=== PATIENT | female | born 1940 | race Caucasian/White ===

== ENCOUNTER 2016-12-13 10:13 | Emergency (ER) | payer MEDICARE, BC ==
[~2016-12-13] VITALS: Ht 157.5 cm; Wt 79.9 kg
[~2016-12-13 10:13] MED LIST: AMLO2.5T78 PO; BISA5TAB6 PO; CALC0.2511 PO; CALC200T26 PO; CARV6.2579 PO; CHOL100062 PO; FER325 PO; HYDR-3498 PO; LACT20SO12 PO; LEVE-5 PO; LEVO88TA PO; LEVO88TA3 PO; LIDO700A31 TD; NOVO3I SC; NSTR15C TOP; PANT40TA4 PO; POLY17PO6 PO; SERT100T PO; TRAM50TA2 PO; TYL500 PO; [UNRECOGNIZED DRUG - CODE] PO
[2016-12-13 10:16] VITALS: Ht 157.5 cm; Wt 79.9 kg
[2016-12-13] MEDS ORDERED: FAMOTIDINE 20 MG INJ IV STA (10:50)
[2016-12-13] MEDS ORDERED: METOCLOPRAMIDE 10 MG INJ IV STA (10:50)
--- NOTE | 2016-12-13 11:06 | ERD ---
ER Documentation Chief Complaint Date/Time DATE: 12/13/16 TIME: 11:03 Chief Complaint AP TODAY , NO NAUSEA, NO CONSTIPATION HPI Patient is a 76-year-old female who presents with sudden onset, constant, moderate epigastric pain since this morning. She states that she feels like fluids get stuck in her esophagus when she swallows. She states that the pain radiates up to her bilateral posterior shoulders. She denies lower abdominal pain. She reports nausea. She denies vomiting. She denies fever. She denies dysuria. She denies shortness of breath. She denies chest pain. She has been having intermittent abdominal discomfort for the last 2 weeks. She has chronic dark stool due to iron supplementation, but denies any change. ROS All systems reviewed and are negative except as per history of present illness. Medications Home Meds Active Scripts Famotidine* (Pepcid*) 20 Mg Tablet, 20 MG PO DAILY for 30 Days, TAB Prov:EDILSON EDMONDSON MD 12/13/16 Tramadol HCl (Tramadol HCl) 50 Mg Tablet, 50 MG PO Q6H Y for Pain for 14 Days, TAB Prov:RICHARD SCHAFER NP 11/11/15 Pantoprazole* (Pantoprazole*) 40 Mg Tablet.dr, 40 MG PO DAILY for 30 Days Prov:RICHARD SCHAFER NP 11/11/15 Nystatin-Tramcinolone* (Mycolog*) 15 Grams Cr, 1 APPLIC TOP BID for 10 Days Prov:RICHARD SCHAFER NP 11/11/15 Lidocaine 5%* (Lidocaine 5%) 1 Patch Patch, 1 PATCH TD DAILY for 14 Days Prov:RICHARD SHCAFER NP 11/11/15 Levetiracetam* (Keppra*) 500 Mg Tablet, 500 MG PO BID for 30 Days, TAB Prov:RICHARD SCHAFER NP 11/11/15 Reported Medications Valsartan* (Diovan*) 160 Mg Tablet, 160 MG PO DAILY, TAB 12/13/16 Clopidogrel Bisulfate (Clopidogrel) 75 Mg Tablet, 75 MG PO DAILY, #30 TAB 12/13/16 Metformin Hcl* (Metformin Hcl*) 850 Mg Tablet, 850 MG PO WITH BREAKFAST DINNE, # 30 TAB 12/13/16 Sitagliptin* (Januvia*) 100 Mg Tablet, 100 MG PO DAILY, #30 TAB 12/13/16 Sertraline Hcl* (Zoloft*) 50 Mg Tablet, 50 MG PO DAILY, #30 TAB 12/13/16 Levothyroxine Sodium* (Levoxyl*) 75 Mcg Tablet, 75 MCG PO BEFORE BREAKFAST, #30 TAB 12/13/16 Ferrous Sulfate* (Ferrous Sulfate*) 325 Mg Tabec, 325 MG PO BID, TAB 10/31/15 Cholecalciferol* (Vitamin D3*) 1,000 Unit Tablet, 1000 UNIT PO DAILY, TAB 10/31/15 Carvedilol* (Carvedilol*) 6.25 Mg Tablet, 6.25 MG PO BID, #60 TAB 10/31/15 Discontinued Reported Medications Levothyroxine Sodium* (Levothyroxine Sodium*) 88 Mcg Tablet, 88 MCG PO BEFORE BREAKFAST, #30 TAB 10/31/15 Calcium Carbonate/Vitamin D3 (Calicum 500+D Tablet Chew) 1 Tab.chew Tab.chew, 1 TAB.CHEW PO, TAB.CHEW 10/31/15 Sertraline Hcl* (Zoloft*) 100 Mg Tablet, 100 MG PO DAILY, #30 TAB 10/31/15 Discontinued Scripts Polyethylene Glycol* (Miralax*) 17 Gm Powd.pack, 17 GM PO DAILY for 30 Days Prov:RICHARD SCHAFER NP 11/11/15 Levothyroxine Sodium* (Synthroid*) 88 Mcg Tablet, 88 MCG PO DAILY@06 for 30 Days , TAB Prov:RICHARD SCHAFER NP 11/11/15 Lactulose* (Cephulac*) 20 Gm/30 Ml Soln, 20 GM PO Q6H Y for CONSTIPATION for 30 Days Prov:RICHARD SCHAFER NP 11/11/15 Insulin Aspart* (Novolog Insulin Pen*) 100 Unit/Ml Soln, 0 UNIT SC WITH MEALS BEDTIME for 30 Days Prov:RICHARD SCHAFER NP 11/11/15 Hydrocodone Bit/Acetaminophen (Anexsia 5-325 Mg Tablet) 1 Tab Tablet, 1 TAB PO Q3H Y for pain for 10 Days, TAB Prov:RICHARD SCHAFER NP 11/11/15 Calcium Carbonate (CALCIUM CARBONATE) 200 Mg Tab.chew, 1000 MG PO PC MEALS for 30 Days, TAB.CHEW Prov:RICHARD SCHAFER NP 11/11/15 Calcitriol* (Calcitriol*) 0.25 Mcg Capsule, 0.5 MCG PO DAILY for 30 Days, CAP Prov:RICHARD SCHAFER [employer] 11/11/15 Bisacodyl* (Bisacodyl*) 5 Mg Tablet.dr, 10 MG PO DAILY Y for CONSTIPATION for 30 Days Prov:HANHRICHARD [employer] 11/11/15 Amlodipine Besylate* (Amlodipine Besylate*) 2.5 Mg Tablet, 2.5 MG PO BID for 30 Days, TAB Prov:HANHRICHARD [employer] 11/11/15 Acetaminophen* (Tylenol*) 500 Mg Tab, 500 MG PO Q6H Y for PAIN AND OR ELEVATED TEMP for 30 Days, TAB Prov:RICHARD SCHAFER [employer] 11/11/15 Allergies Allergies: Coded Allergies: No Known Allergy (Unverified , 12/13/16) PMhx/Soc Past medical history: Bladder cancer, diabetes, hypertension, hyperlipidemia, anemia Past surgical history: Cholecystectomy, hysterectomy, resection of bladder cancer Social history: Denies tobacco or alcohol. History of Surgery: No Anesthesia Reaction: No Hx Neurological Disorder: No Hx Respiratory Disorders: No Hx Cardiac Disorders: Yes (TIA) Hx Psychiatric Problems: No Hx Miscellaneous Medical Probl: Yes (HTN, seizure, depression, DM, hypothyroidism, Bladder cancer in 2016) Hx Alcohol Use: No Hx Substance Use: No Hx Tobacco Use: No Smoking Status: Never smoker FmHx Noncontributory Physical Exam Vitals Vital Signs Date Time Temp Pulse Resp B/P Pulse Ox O2 Delivery O2 Flow Rate FiO2 12/13/16 10:16 98.1 69 18 143/60 99 Physical Exam Const: Alert, appears mildly uncomfortable Head: Atraumatic Eyes: Normal Conjunctiva, no pallor, no icterus ENT: Normal External Ears, Nose and Mouth. Neck: Full range of motion..~ No meningismus. Resp: Clear to auscultation bilaterally, no wheezes, no rales Cardio: Regular rate and rhythm, no murmurs Abd: Soft, non distended. Tender in epigastrium only. No guarding, no rebound Skin: No petechiae or rashes Back: No midline or flank tenderness. Paraspinal muscle tenderness with spasm. Ext: No cyanosis, or edema. 2+ pulses in 4 extremities. Neur: Awake and alert, cranial nerves II through XII intact bilaterally, moves and feels 4 extremities appropriately Psych: Normal Mood and Affect Result Diagram: 12/13/16 1107 12/13/16 1107 Results 24 hrs Laboratory Tests Test 12/13/16 10:39 12/13/16 11:07 Urine Color YELLOW Urine Clarity CLEAR Urine pH 5.0 Urine Specific [place] 1.017 Urine Ketones NEGATIVEmg/dL Urine Nitrite NEGATIVEmg/dL Urine Bilirubin NEGATIVEmg/dL Urine Urobilinogen NEGATIVEmg/dL Urine Leukocyte Esterase NEGATIVELeu/ul Urine Microscopic RBC 1/HPF Urine Microscopic WBC 0/HPF Urine Bacteria FEW/HPF Urine Hemoglobin 2+mg/dL Urine Glucose NEGATIVEmg/dL Urine Total Protein NEGATIVEmg/dl White Blood Count 15.210^3/ul Red Blood Count 3.8910^6/ul Hemoglobin 10.6g/dl Hematocrit 33.9% Mean Corpuscular Volume 87.1fl Mean Corpuscular Hemoglobin 27.2pg Mean Corpuscular Hemoglobin Concent 31.3g/dl Red Cell Distribution Width 13.7% Platelet Count 25137^3/UL Mean Platelet Volume 11.1fl Neutrophils % 82.3% Lymphocytes % 11.0% Monocytes % 4.3% Eosinophils % 1.5% Basophils % 0.5% Nucleated Red Blood Cells % 0.0/100WBC Neutrophils # 12.510^3/ul Lymphocytes # 1.710^3/ul Monocytes # 0.710^3/ul Eosinophils # 0.210^3/ul Basophils # 0.110^3/ul Nucleated Red Blood Cells # 0.010^3/ul Prothrombin Time 12.3Sec Prothrombin Time Ratio 1.0 INR International Normalized Ratio 0.91 Sodium Level 139mmol/L Potassium Level 4.7mmol/L Chloride Level 103mmol/L Carbon Dioxide Level 23mmol/L Anion Gap 18 Blood Urea Nitrogen 24mg/dl Creatinine 1.12mg/dl Glucose Level 114mg/dl Calcium Level 10.7mg/dl Total Bilirubin 0.0mg/dl Direct Bilirubin 0.00mg/dl Indirect Bilirubin 0.0mg/dl Aspartate Amino Transf (AST/SGOT) 27IU/L Alanine Aminotransferase (ALT/SGPT) 31IU/L Alkaline Phosphatase 90IU/L Troponin I < 0.012ng/ml Total Protein 6.8g/dl Albumin 4.3g/dl Globulin 2.50g/dl Albumin/Globulin Ratio 1.72 Lipase 106U/L Current Medications Medications (Trade) Dose Ordered Sig/Amanda Route PRN Reason Start Time Stop Time Status Last Admin Dose Admin Metoclopramide HCl (Reglan) 10 mg ONCE STAT IV 12/13/16 10:50 12/13/16 10:51 DC 12/13/16 11:20 Famotidine (Pepcid Iv) 20 mg ONCE STAT IV 12/13/16 10:50 12/13/16 10:51 DC 12/13/16 11:21 Morphine Sulfate (morphine) 4 mg ONCE STAT IV 12/13/16 13:09 12/13/16 13:10 DC 12/13/16 13:18 IV Flush 10 ml 10 ml STK-MED ONCE .ROUTE 12/13/16 13:41 12/13/16 13:42 DC Sodium Chloride (NS) 100 ml @ ud STK-MED ONCE .ROUTE 12/13/16 13:41 12/13/16 13:42 DC Iodixanol (Visipaque Locm) 100 ml STK-MED ONCE .ROUTE 12/13/16 13:41 12/13/16 13:42 DC Procedures/MDM EKG read by me: Time 1108, rate 69 Rhythm: Normal sinus [place]: Normal Intervals: Normal ST-T waves: no ischemic changes Ectopy: No Q-waves: No Impression: No evidence of ischemia or arrhythmia MDM: Patient is a 76-year-old female who presents with epigastric abdominal pain for several hours. She has a nonischemic EKG, relatively benign abdominal exam, and has not had vomiting. She denies chest pain. Her laboratory evaluation reveals leukocytosis, but is otherwise unremarkable. She has no fever or other vital sign abnormality. On reassessment, the patient appears improved. She now reports having muscle spasm in her back, but states that her abdomen feels better. She continues to deny chest pain. The patient is status post cholecystectomy. There is no evidence of pancreatitis. I have low suspicion for coronary ischemia. The patient does have some muscle spasm and tenderness in the back, but I believe that this is not likely related to her abdominal pain. I do not believe that her presentation is concerning for aortic dissection. I do not believe it is concerning for mesenteric ischemia. I will discharge the patient home with a prescription for Pepcid, and have advised her on strict return precautions if she experiences worsening pain, vomiting, or fever. I have advised her to follow-up with her PMD tomorrow regardless. Departure Diagnosis: Primary Impression: Abdominal pain Abdominal location: epigastric Qualified Code: R10.13 - Epigastric pain Additional Impression: Muscle spasm Condition: Stable EDILSON EDMONDSON MD Dec 13, 2016 11:06
[2016-12-13 11:22] LABS: ADD SCAN DIFF NO
[2016-12-13 11:26] LABS: BASOPHIL # 0.1 10^3/ul (0.0-0.1); BASOPHILS % 0.5 % (0.0-2.0); EOSINOPHILS # 0.2 10^3/ul (0.0-0.5); EOSINOPHILS % 1.5 % (0.0-7.0); HEMATOCRIT 33.9 % (37.0-47.0); HEMOGLOBIN 10.6 g/dl (12.0-16.0); LYMPHOCYTES # 1.7 10^3/ul (0.8-2.9); MEAN CORPUSCULAR HEMOGLOBIN 27.2 pg (29.0-33.0); MEAN CORPUSCULAR HGB CONC 31.3 g/dl (32.0-37.0); MEAN CORPUSCULAR VOLUME 87.1 fl (82.0-101.0); MEAN PLATELET VOLUME 11.1 fl (7.4-10.4); MONOCYTE # 0.7 10^3/ul (0.3-0.9); MONOCYTES % 4.3 % (0.0-11.0); NEUTROPHIL # 12.5 10^3/ul (1.6-7.5); NEUTROPHILS % 82.3 % (39.0-77.0); PLATELET COUNT 233 10^3/UL (140-415); RED BLOOD COUNT 3.89 10^6/ul (4.20-5.40); RED CELL DISTRIBUTION WIDTH 13.7 % (11.5-14.5); WHITE BLOOD COUNT 15.2 10^3/ul (4.8-10.8)
--- NOTE | 2016-12-13 11:38 | RADRPT ---
PROCEDURE: XR Chest. CLINICAL INDICATION: Abdominal pain TECHNIQUE: An AP view of the chest was obtained. COMPARISON: Chest x-ray dated 11/07/2015 FINDINGS: There is prominence of the central pulmonary vascular markings. No focal airspace opacification or pneumothorax is seen. The cardiomediastinal silhouette is within normal limits for size. Calcifica tions are seen within the aortic arch. There are mitral annular calcifications. The osseous structur es demonstrate senescent changes. IMPRESSION: 1. Findings suggestive of pulmonary vascular congestion, improved when compared to the prior exami nation. 2. Aortic atherosclerosis. RPTAT: HH .Barbara Ann MD, MD Date Time Electronically viewed and signed by .Barbara Ann MD, on 12/13/2016 11:38 .G/
[2016-12-13 11:47] LABS: UR BACTERIA FEW /HPF (NONE SEEN); UR RBC 1 /HPF (0-5)
[2016-12-13 11:48] LABS: INR 0.91; PROTIME 12.3 Sec (12.2-14.2)
[2016-12-13 11:49] LABS: ADD UMIC YES; UR ASCORBIC ACID NEGATIVE (NEGATIVE); UR BILIRUBIN (Dip) NEGATIVE (NEGATIVE); UR BLOOD (Dip) 2+ mg/dL (NEGATIVE); UR CLARITY CLEAR (CLEAR); UR COLOR YELLOW (YELLOW); UR GLUCOSE (Dip) NEGATIVE (NEGATIVE); UR KETONES (Dip) NEGATIVE (NEGATIVE); UR LEUKOCYTE ESTERASE (Dip) NEGATIVE Leu/ul (NEGATIVE); UR NITRITE (Dip) NEGATIVE (NEGATIVE); UR SPECIFIC GRAVITY (Dip) 1.017 (1.003-1.030); UR TOTAL PROTEIN (Dip) NEGATIVE (NEGATIVE); UR UROBILINOGEN (Dip) NEGATIVE (NEGATIVE)
[2016-12-13 11:58] LABS: ALANINE AMINOTRANSFERASE 31 IU/L (13-69); ALBUMIN 4.3 g/dl (3.3-4.9); ALBUMIN/GLOBULIN RATIO 1.72; ALKALINE PHOSPHATASE 90 IU/L (42-121); ANION GAP 18 (8-16); ASPARTATE AMINO TRANSFERASE 27 IU/L (15-46); BLOOD UREA NITROGEN 24 mg/dl (7-20); CALCIUM 10.7 mg/dl (8.4-10.2); CARBON DIOXIDE 23 mmol/L (21-31); CHLORIDE 103 mmol/L (97-110); CREATININE 1.12 mg/dl (0.44-1.00); GLUCOSE 114 mg/dl (70-220); POTASSIUM 4.7 mmol/L (3.5-5.1); SODIUM 139 mmol/L (135-144); TOTAL PROTEIN 6.8 g/dl (6.1-8.1)
[2016-12-13 12:11] LABS: TROPONIN-I < 0.012 ng/ml (0.00-0.12)
[2016-12-13] MEDS ORDERED: LEVO75TA65 PO (12:43)
[2016-12-13] MEDS ORDERED: SERT50TA PO (12:44)
[2016-12-13] MEDS ORDERED: SITA100T8 PO (12:44)
[2016-12-13] MEDS ORDERED: METF850T PO (12:44)
[2016-12-13] MEDS ORDERED: CLOP75TA27 PO (12:45)
[2016-12-13] MEDS ORDERED: VALS160T20 PO (12:45)
[2016-12-13] MEDS ORDERED: morphine 4 MG/ML VIAL IV STA (13:09)
[2016-12-13] MEDS ORDERED: SOD CHLORIDE 0.9% 100 ML ONE (13:41)
[2016-12-13] MEDS ORDERED: IODIXANOL LOCM 100 ML BTL ONE (13:41)
--- NOTE | 2016-12-13 14:22 | RADRPT ---
PROCEDURE: CT Abdomen and Pelvis with contrast. CLINICAL INDICATION: Abdominal pain. History of bladder cancer. TECHNIQUE: CT scan of the abdomen and pelvis with contrast was performed on a multi-detector high- resolution CT scanner. The patient was scanned following the uncomplicated intravenous administrati on of 90 cc of Visipaque 320. Coronal and sagittal reformatted images were obtained from the axial source images. Images were reviewed on a high-resolution PACS workstation. The total exam CTDI equal s 12.92 mGy and the total exam DLP equals 689.81 mGy-cm. One or more of the following dose reduction techniques were used: Automated exposure control. Adjustment of the mA and/or kV according to patient size. Use of iterative reconstruction technique. COMPARISON: None. FINDINGS: CT abdomen: The lung bases are clear. There is left atrial enlargement. Dense mitral valvular calcifications ar e present. The liver is normal in size and density without focal mass or intrahepatic biliary dilatation. The spleen is normal in size and homogeneous in density. The stomach is partially collapsed, but is matt ssly unremarkable. The pancreas as visualized is normal. The gallbladder is surgically absent. Th ere is mild prominence of the biliary tree. The adrenal glands are symmetric and normal. The kidne ys are symmetrically unremarkable as well. No renal calculus or obstructive uropathy or mass lesion is seen. The aorta is of normal caliber. Aortic vascular calcifications are present. There is no retroperit dwyer lymphadenopathy. The hanh hepatis region is clear. The bowel and mesentery, as visualized, are equally unremarkable. There is a small hiatal hernia. CT pelvis: The small bowel loops situated within the pelvis are unremarkable. The uterus is absent. The pelvi c sidewalls and inguinal regions are clear. The sigmoid colon and rectum are remarkable for sigmoid diverticulosis. No mass, lymphadenopathy, or free fluid is seen. No acute inflammation is seen. The bladder is normal. The surrounding osseous structures are remarkable for mild lumbar spondylosis . There is grade 1 anterolisthesis of L5 on S1. No osteolytic or osteoblastic lesion is detected. IMPRESSION: 1. No mass, lymphadenopathy, or focal acute inflammatory process is identified. 2. Status post cholecystectomy. Mild prominence of the biliary tree likely related to prior cholec ystectomy. 3. Small hiatal hernia. 4. Aortoiliac atherosclerosis. 5. Mild left atrial enlargement. Dense mitral valve calcifications/prosthesis. RPTAT: BB .Mary Yu MD, Date Time Electronically viewed and signed by .Mary Yu MD, on 12/13/2016 14:21 .O/
[2016-12-13] MEDS ORDERED: FAMO-18 PO (15:15)
[2016-12-13 15:18] VITALS: BP 124/71; PULSE 71; RESP 18; TEMP 98.5
== END 2016-12-13 15:30 | disposition home or self-care (01) ==
LOC: E/R 10:13
DX: R10.13 Epigastric pain (principal); M62.838 Other muscle spasm; I10 Essential (primary) hypertension; E11.9 Type 2 diabetes mellitus without complications; E03.9 Hypothyroidism, unspecified; Z79.4 Long term (current) use of insulin; Z79.84 Long term (current) use of oral hypoglycemic drugs; Z85.51 Personal history of malignant neoplasm of bladder
CPT/HCPCS: 36415; 71010; 74177; 80053; 81001; 83690; 84484; 85025; 85610; 93005; 96374; 96375; 99285; J2270; J2765; Q9967